=== PATIENT | female | born 1980 | race African-American/Black ===

== ENCOUNTER 2017-05-24 14:10 | Emergency (ER) | payer SELFPAY ==
[~2017-05-24] VITALS: Ht 162.6 cm; Wt 55.0 kg
[2017-05-24] MEDS ORDERED: MORPHINE SULFATE 4 MG/ML CPJ (NOT FOR IM USE) IV STA (14:55)
[2017-05-24] MEDS ORDERED: KETOROLAC 30MG/ML VIAL IV STA (14:55)
[2017-05-24] MEDS ORDERED: ONDANSETRON HCL 4MG/2ML VIAL IV STA (14:55)
[2017-05-24] MEDS ORDERED: SODIUM CHLORIDE 0.9% 500 ML IV ONE (14:55)
[2017-05-24 15:56] LABS: HCG SCREEN NEGATIVE
[2017-05-24 17:28] VITALS: BP 108/67
== END 2017-05-24 17:35 | disposition home or self-care (01) ==
LOC: ER 15:57
DX: S42.215A Unspecified nondisplaced fracture of surgical neck of left humerus, initial encounter for closed fracture (principal); Y04.8XXA Assault by other bodily force, initial encounter; Y93.89 Activity, other specified; Y92.89 Other specified places as the place of occurrence of the external cause
CPT/HCPCS: 71045; 73030; 84703; 96374; 96375; 99285; J1885; J2270; J2405; J7040; Z7610; A4565